=== PATIENT | male | born 1995 | race Caucasian/White ===

== ENCOUNTER 2017-02-17 22:16 | Emergency (ER) | payer OTHER, BC ==
[~2017-02-17] VITALS: Ht 188 cm; Wt 83.5 kg
[2017-02-17 22:24] VITALS: BP 137/94
[2017-02-17] MEDS ORDERED: CEPHALEXIN 500 MG CAP PO ONE (23:30)
[2017-02-17] MEDS ORDERED: OXYCODONE/APAP 5MG/325MG(BULK FOR ED) 1 TABLET PO ONE (23:30)
[2017-02-17] MEDS ORDERED: PERCOCET 5MG/325MG TAB PO ONE (23:30)
[2017-02-17] MEDS ORDERED: KEFL500C7 PO (23:31)
[2017-02-17] MEDS ORDERED: NORCOTAB PO (23:31)
--- NOTE | 2017-02-18 08:09 | REP ---
Right hand four views: There is a nondisplaced fracture of the shaft and distal tuft of the ring finger. There is soft tissue injury at the distal tip of the ring finger. Mineralization joint spaces are otherwise unremarkable. Signed by Alden Alcazar MD 02/18/2017 08:00 A
== END 2017-02-17 23:55 | disposition home or self-care (01) ==
LOC: M ED 23:43
DX: S62.664A Nondisplaced fracture of distal phalanx of right ring finger, initial encounter for closed fracture (principal); S61.202A Unspecified open wound of right middle finger without damage to nail, initial encounter; W31.89XA Contact with other specified machinery, initial encounter; Y92.89 Other specified places as the place of occurrence of the external cause; Y93.89 Activity, other specified; Y99.0 Civilian activity done for income or pay; F17.200 Nicotine dependence, unspecified, uncomplicated; Z88.0 Allergy status to penicillin